=== PATIENT | female | born 1965 | race African-American/Black ===

== ENCOUNTER → 2020-08-27 | Day surgery (SDC) | payer OTHER ==
--- OUTSIDE RECORDS SUMMARY | 2020-08-27 09:50 | XMS ---
:1965 [facility] Care Team Providers Name Role Phone INES LIAM Unavailable Unavailable MINDY GOODWIN Unavailable Unavailable STEPHANIE MARTINEZ Unavailable Unavailable Re-disclosure Warning The records that you are about to access may contain information from federally- assisted alcohol or drug abuse programs. If such information is present, then the following federally mandated warning applies: This information has been disclosed to you from records protected by federal confidentiality rules (42 CFR part 2). The federal rules prohibit you from making any further disclosure of this information unless further disclosure is expressly permitted by the written consent of the person to whom it pertains or as otherwise permitted by 42 CFR part 2. A general authorization for the release of medical or other information is NOT sufficient for this purpose. The Federal rules restrict any use of the information to criminally investigate or prosecute any alcohol or drug abuse patient.The records that you are about to access may contain highly sensitive health information, the redisclosure of which is protected by Article 27-F of the [facility] Public Health law. If you continue you may haveaccess to information: Regarding HIV / AIDS; Provided by facilities licensed or operated by the [facility] Office of Mental Health; or Provided by the [facility] Office for People With Developmental Disabilities. If such information is present, then the following [facility] mandated warning applies: This information has been disclosed to you from confidential records which are protected by state law. State law prohibits you from making any further disclosure of this information without the specific written consent of the person to whom it pertains, or as otherwise permitted by law. Any unauthorized further disclosure in violation of state law may result in a fine or fdc sentence or both. A general authorization for the release of medical or other information is NOT sufficient authorization for further disclosure. Encounters Encounter Providers Location Date Indications Data Source(s ) Outpatient Attender: GNOSTICIST, 08[facility]18/2020 C[facility] GNOSTICIST, [employer] HUMAYUNReferrer: AHDIDIER NAVAEF C50.911 Outpatient Attender: GNOSTICIST, 07/28/2020 04:01:00 [facility].911 [facility] HUMAYUNReferrer: Osmel MARTINEZ orporation TAUSEEF C50.911 Outpatient Attender: GNOSTICIST, 07/21/2020 03:54:00 C50.911 [facility] PM EDT [facility] e[facility] Care HUMAYUNReferrer: Osmel MARTINEZ orporation TAUSEEF C50.911 Outpatient Attender: MICHELLE, 06/15/2020 01:34:00 C50.911 [facility] TAUSEEFAdmitter: MICHELLE, PM EDT H ealt Care TAUSEEFReferrer: Osmel MARTINEZ orporation TAUSEEF C50.911 Outpatient Attender: MICHELLE, 06/02/2020 10:13:00 C50.911 [facility] AM EDT H ealt Care HUMAYUNReferrer: Osmel MARTINEZ orporation TAUSEEF C50.911 Outpatient Attender: CHRISTA, 06/02/2020 06:00:00 C50.91 [facility] EDT [facility] e[facility] ZVIReferrer: Katie MARTINEZ ration TAUSEEF C50.911 Outpatient Attender: CHRISTA, 05/28/2020 06:00:00 C50.91 [facility] ZVIReferrer: Kyung MARTINEZo ration TAUSEEF C50.911 Outpatient Attender: MICHELLE 05/19/2020 10:40:00 C50.911 [facility] TAUSEEFAdmitter: AHMED, AM EDT H ealth Care TAUSEEFReferrer: AHMED, C orporation TAUSEEF C50.911 Outpatient Attender: AHMED, 04/13/2020 03:15:00 C50.911 [facility] TAUSEEFAdmitter: GNOSTICIST, PM EDT H ealth Care HUMAYUNReferrer: AHMED, C orporation TAUSEEF C50.911 Outpatient Attender: AHMED, 02/17/2020 03:15:00 C50.911 [facility] TAUSEEFAdmitter: GNOSTICIST, PM EDT H ealth Care HUMAYUNReferrer: AHMED, C orporation TAUSEEF C50.911 Outpatient Attender: MICHELLE, 01/22/2020 06:00:00 C50.911 [facility] TAUSEEFAdmitter: AM EDT Health C are [facility] GOODWINVIReferrer: C orporation AHMED, TAUSEEF C50.911 Outpatient Attender: MICHELLE, 01/21/2020 02:28:00 C50.911 [facility] TAUSEEFAdmitter: AHMED, PM EDT H ealt Care TAUSEEFReferrer: AHMED, C orporation TAUSEEF C50.911 Insurance Providers Payer name Policy type Policy ID Covered Covered libertarian's Policy P matheus / Coverage libertarian ID relationship to Cohen Inf ormation type cohen HERNANDO [id number] SP [id number] HEALTH CARE HMO/POS/EPO [place] [id number] 1 [id number] HEALTH CARE Problems, Conditions, and Diagnoses Code Display Name Description Problem Type Effective Data Sour ce(s) Dates C50.911 Malignant MALIGNANT Diagnosis 08/18/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 Ql KASH+probe This lab was ordered by [facility] and reported by [facility]. ID Date Data Source [id number] 03/16/2020 10:25:00 AM EDT [facility] Name Value Range Interpretation Description Data Sup porting Code Source(s) Document(s ) SARS [facility] CORONAVIRUS 2 RNA This lab was ordered by [facility] and reported by [facility]. Procedure
--- NOTE | 2020-08-30 11:50 | PATH ---
Cytology Non-Gynecological Report Patient Name: BLANCA MEDRANO Med. Rec. #: [id number] /Age/Gender: 1965 (Age: 55) / F Account: [id number] Location: RADIOLOGY [facility] Taken: 08/27/2020 Received: 08/27/2020 Reported: 08/30/2020 Physicians: Arabella Johnston Specimen(s) Received RIGHT BREAST FINE NEEDLE ASPIRATION Clinical History Patient had mastectomy with sponsorship coordinator placed. Fluid accumulation, bloody fluid aspirated from right breast. Final Diagnosis RIGHT BREAST FLUID, FINE NEEDLE ASPIRATION: SATISFACTORY FOR EVALUATION NO MALIGNANT CELLS IDENTIFIED. ACUTE INFLAMMATORY CELLS AND RARE MACROPHAGES PRESENT IN A BACKGROUND OF BLOODY MATERIAL. NO LINING EPITHELIAL CELLS PRESENT. SUGGEST CLINICAL CORRELATION. Electronically Signed uLcrecia Amado M.D. Gross Description Approximately 45cc of yellow fluid received fixed in 50% alcohol. One cytospin and one cellblock prepared
== END | disposition home or self-care (01) ==
LOC: JRADUS-SUR 09:36
PROVIDERS: ATTEND Plastic Surgery
PROC: 0H9T3ZX Drainage of Right Breast, Percutaneous Approach, Diagnostic (ICD-10-PCS; principal; 2020-08-27)
PROC: BH40ZZZ Ultrasonography of Right Breast (ICD-10-PCS; 2020-08-27)
DX: N63.10 Unspecified lump in the right breast, unspecified quadrant (principal); N64.89 Other specified disorders of breast; Z90.13 Acquired absence of bilateral breasts and nipples
CPT/HCPCS: 76942; 87070; 87075; 87205; 87899; 88173

== ENCOUNTER 2021-04-26 04:08 | Inpatient (IN) | payer OTHER ==
[2021-04-25 13:16] VITALS: BMI 29.1
[2021-04-26] MEDS ORDERED: HEPARIN NA (PORCINE) 5,000 UNITS/ML 1ML VIAL ONE ×2 (06:57→07:22)
[2021-04-26] MEDS ORDERED: ceFAZolin SODIUM 1 GM VIAL ONE ×3 (06:58→21:16)
[2021-04-26] MEDS ORDERED: BUPIVACAINE LIPOSOME/PF (EXPAREL) 266 MG/20 ML VIAL ONE (07:22)
[2021-04-26] MEDS ORDERED: LIDOCAINE HCL 4% PRESERVE-FREE 5 ML AMP ONE ×2 (07:23→07:24)
[2021-04-26] MEDS ORDERED: LIDOCAINE HCL 1% EPINEPHRINE 1:200,000 30 ML VIAL (PF) ONE (07:36)
[2021-04-26] MEDS ORDERED: ceFAZolin SODIUM 1 GM VIAL IVPB ONE (08:26)
[2021-04-26] MEDS ORDERED: HEPARIN NA (PORCINE) 5,000 UNITS/ML 1ML VIAL SQ ONE (08:28)
[2021-04-26] MEDS ORDERED: LIDOCAINE 1%/EPI 1:100000 (20 ML MULTI DOSE VIAL) IJ ONE (08:45)
[2021-04-26] MEDS ORDERED: ceFAZolin 2 GRAM PREMIX BAG IVPB ONE ×2 (12:30→15:38)
[2021-04-26] MEDS ORDERED: fentaNYL CITRATE 250 MCG/5 ML VIAL ONE (14:32)
[2021-04-26] MEDS ORDERED: ROCURONIUM BROMIDE 50 MG/5 ML SYRINGE ONE (14:32)
[2021-04-26] MEDS ORDERED: BUPIVACAINE LIPOSOME/PF (EXPAREL) 266 MG/20 ML VIAL NR ONE (15:04)
[2021-04-26] MEDS ORDERED: ONDANSETRON 4 MG/2 ML VIAL ONE (15:25)
[2021-04-26] MEDS ORDERED: ACETAMINOPHEN 1000 MG/100 ML VIAL (NON FORMULARY) IVPB ONE (16:39)
[2021-04-26] MEDS ORDERED: ONDANSETRON 4 MG/2 ML VIAL IVPUSH PRN (16:55)
[2021-04-26] MEDS ORDERED: PROCHLORPERAZINE MALEATE 25 MG SUPP.RECT PR PRN (16:55)
[2021-04-26] MEDS ORDERED: ZOLPIDEM TARTRATE 5 MG TABLET PO PRN (16:55)
[2021-04-26] MEDS ORDERED: METOCLOPRAMIDE HCL INJECTION 10 MG/2 ML VIAL IVPB PRN (16:55)
[2021-04-26] MEDS ORDERED: D5-1/2NS+10 MEQ KCL - 10 MEQ/1,000 ML INFUS.BAG IV SCH (17:00)
[2021-04-26] MEDS ORDERED: HEPARIN NA (PORCINE) 5,000 UNITS/ML 1ML VIAL SQ SCH (17:00)
[2021-04-26] MEDS ORDERED: DEXTROSE 5%-WATER - 50 ML IVPB ONE (21:16)
[2021-04-26] MEDS: CEFAZOLIN 1 GM in DEXTROSE 5%-WATER - 1 GM/50 ML IVPB IVPB SCH (21:23)
[2021-04-27] MEDS ORDERED: DEXTROSE 5%-WATER - 50 ML IVPB ONE ×3 (01:34→17:40)
[2021-04-27] MEDS ORDERED: ceFAZolin SODIUM 1 GM VIAL ONE ×3 (01:34→17:40)
[2021-04-27] MEDS: CEFAZOLIN 1 GM in DEXTROSE 5%-WATER - 1 GM/50 ML IVPB IVPB SCH ×3 (01:45→18:16)
[2021-04-27] MEDS: MORPHINE SULFATE 2 MG/ML VIAL IVPUSH PRN ×2 (05:58→15:02)
[2021-04-27] MEDS: CHOLECALCIFEROL (VIT D3) 1,000 UNIT (25 MCG) TABLET PO SCH (09:03)
[2021-04-27] MEDS: ATENOLOL 50 MG TABLET (FP) PO SCH (09:03)
[2021-04-27] MEDS: ASPIRIN 325 MG TABLET PO SCH (09:03)
[2021-04-27] MEDS: MULTIVITAMINS (DAILY MVI) TABLET (FP) PO SCH (09:03)
[2021-04-27] MEDS ORDERED: SODIUM CHLORIDE 500 ML IV STA ×2 (10:04→10:21)
[2021-04-27 10:08] LABS: BASO % 0.4 % (0-2.0); EOS % 2.9 % (0-4.5); HEMATOCRIT 34.4 % (32.4-45.2); HEMOGLOBIN 11.4 GM/dL (10.7-15.3); LYMPH % 19.3 % (8-40); MCHC 33.2 g/dl (32.0-36.0); MEAN CELL VOLUME 96.3 fl (80-96); MEAN PLT VOLUME 6.5 fl (7.5-11.1); MONO % 5.5 % (3.8-10.2); NEUT % 71.9 % (42.8-82.8); PLATELET COUNT 250 10^3/uL (134-434); RBC 3.57 M/mm3 (3.60-5.2); RDW 15.8 % (11.6-15.6); WHITE BLOOD COUNT 2.7 K/mm3 (4.0-10.0)
[2021-04-27] MEDS ORDERED: guaiFENesin/CODEINE 10 ML UNIT-DOSE CUPS PO ONE (10:13)
[2021-04-27] MEDS: HEPARIN NA (PORCINE) 5,000 UNITS/ML 1ML VIAL SQ SCH ×2 (10:21→20:45)
[2021-04-27 10:27] LABS: CALCIUM 8.5 mg/dL (8.5-10.1)
[2021-04-27 10:28] LABS: BLOOD UREA NITROGEN 5.4 mg/dL (7-18)
[2021-04-27 10:31] LABS: CREATININE 0.9 mg/dL (0.55-1.3)
[2021-04-27] MEDS ORDERED: PT OWN MED DRAWER 7, Y5N ONE (15:38)
[2021-04-27] MEDS: DEXTROSE 5%-LACTATED RINGERS 1,000 ML IV SCH (15:42)
[2021-04-28] MEDS: MORPHINE SULFATE 2 MG/ML VIAL IVPUSH PRN ×3 (00:15→19:38)
[2021-04-28] MEDS ORDERED: ceFAZolin SODIUM 1 GM VIAL ONE ×3 (01:08→18:36)
[2021-04-28] MEDS ORDERED: DEXTROSE 5%-WATER - 50 ML IVPB ONE ×3 (01:08→18:36)
[2021-04-28] MEDS: CEFAZOLIN 1 GM in DEXTROSE 5%-WATER - 1 GM/50 ML IVPB IVPB SCH ×3 (01:16→19:06)
[2021-04-28] MEDS: NORMAL SALINE FLUSH 0.9% 2.5 ML SYRINGE IVPUSH SCH ×4 (10:05→23:09)
[2021-04-28] MEDS: HEPARIN NA (PORCINE) 5,000 UNITS/ML 1ML VIAL SQ SCH ×2 (10:05→20:37)
[2021-04-28] MEDS: ASPIRIN 325 MG TABLET PO SCH (10:13)
[2021-04-28] MEDS: CHOLECALCIFEROL (VIT D3) 1,000 UNIT (25 MCG) TABLET PO SCH (10:14)
[2021-04-28] MEDS: MULTIVITAMINS (DAILY MVI) TABLET (FP) PO SCH (10:14)
[2021-04-28] MEDS ORDERED: ACETAMINOPHEN 325 MG TABLET (FP) PO PRN (11:58)
[2021-04-28] MEDS: ATENOLOL 50 MG TABLET (FP) PO SCH (12:22)
[2021-04-28] MEDS: DEXTROSE 5%-LACTATED RINGERS 1,000 ML IV SCH (22:24)
[2021-04-28] MEDS ORDERED: METOCLOPRAMIDE HCL INJECTION 10 MG/2 ML VIAL IVPB PRN (22:39)
[2021-04-28] MEDS ORDERED: ONDANSETRON 4 MG/2 ML VIAL IVPUSH PRN (22:39)
[2021-04-28] MEDS ORDERED: ZOLPIDEM TARTRATE 5 MG TABLET PO PRN (22:39)
[2021-04-28] MEDS ORDERED: MORPHINE SULFATE 2 MG/ML VIAL IVPUSH PRN (22:39)
[2021-04-29] MEDS ORDERED: ceFAZolin SODIUM 1 GM VIAL ONE ×3 (01:35→18:05)
[2021-04-29] MEDS ORDERED: DEXTROSE 5%-WATER - 50 ML IVPB ONE ×3 (01:35→18:06)
[2021-04-29] MEDS: CEFAZOLIN 1 GM in DEXTROSE 5%-WATER - 1 GM/50 ML IVPB IVPB SCH ×3 (01:45→18:25)
[2021-04-29] MEDS: oxyCODONE HCL 5 MG TABLET PO PRN (03:12)
[2021-04-29] MEDS ORDERED: ACETAMINOPHEN 325 MG TABLET (FP) PO ONE (05:05)
[2021-04-29] MEDS: NORMAL SALINE FLUSH 0.9% 2.5 ML SYRINGE IVPUSH SCH ×2 (06:37→15:01)
[2021-04-29] MEDS: ACETAMINOPHEN 1000 MG/100 ML VIAL (NON FORMULARY) IVPB SCH ×3 (09:24→20:43)
[2021-04-29] MEDS ORDERED: LACTULOSE 20 GM/30 ML UDC (FOR ORAL USE ONLY) PO ONE (09:32)
[2021-04-29 10:37] LABS: BASO % 0.3 % (0-2.0); EOS % 2.4 % (0-4.5); HEMATOCRIT 25.8 % (32.4-45.2); HEMOGLOBIN 8.6 GM/dL (10.7-15.3); LYMPH % 32.5 % (8-40); MCH 31.8 pg (25.7-33.7); MCHC 33.4 g/dl (32.0-36.0); MEAN CELL VOLUME 95.3 fl (80-96); MEAN PLT VOLUME 6.9 fl (7.5-11.1); MONO % 9.5 % (3.8-10.2); NEUT % 55.3 % (42.8-82.8); PLATELET COUNT 218 10^3/uL (134-434); RBC 2.71 M/mm3 (3.60-5.2); RDW 15.4 % (11.6-15.6); WHITE BLOOD COUNT 2.6 K/mm3 (4.0-10.0)
[2021-04-29 11:07] LABS: CALCIUM 8.1 mg/dL (8.5-10.1)
[2021-04-29 11:08] LABS: BLOOD UREA NITROGEN 4.8 mg/dL (7-18)
[2021-04-29 11:10] LABS: CREATININE 0.7 mg/dL (0.55-1.3)
[2021-04-29] MEDS: HEPARIN NA (PORCINE) 5,000 UNITS/ML 1ML VIAL SQ SCH ×2 (11:11→20:43)
[2021-04-29 11:12] LABS: TOT PROT 5.3 g/dl (6.4-8.2)
[2021-04-29] MEDS: CHOLECALCIFEROL (VIT D3) 1,000 UNIT (25 MCG) TABLET PO SCH (11:12)
[2021-04-29] MEDS: MULTIVITAMINS (DAILY MVI) TABLET (FP) PO SCH (11:12)
[2021-04-29] MEDS: ATENOLOL 50 MG TABLET (FP) PO SCH (11:12)
[2021-04-29] MEDS: ASPIRIN 325 MG TABLET PO SCH (11:12)
[2021-04-29 11:15] LABS: BILIRUBIN,TOTAL 0.7 mg/dL (0.2-1)
[2021-04-29] MEDS: POLYETHYLENE GLYCOL 3350 119 GM BTL PO SCH (11:15)
[2021-04-29 22:19] VITALS: BP 134/94; PULSE 95; TEMP 98.6
[2021-04-30] MEDS ORDERED: ceFAZolin SODIUM 1 GM VIAL ONE ×2 (01:52→10:00)
[2021-04-30] MEDS ORDERED: DEXTROSE 5%-WATER - 50 ML IVPB ONE ×2 (01:53→10:01)
[2021-04-30] MEDS: CEFAZOLIN 1 GM in DEXTROSE 5%-WATER - 1 GM/50 ML IVPB IVPB SCH ×2 (01:55→10:05)
[2021-04-30] MEDS: NORMAL SALINE FLUSH 0.9% 2.5 ML SYRINGE IVPUSH SCH ×2 (01:55→06:05)
[2021-04-30] MEDS: ACETAMINOPHEN 1000 MG/100 ML VIAL (NON FORMULARY) IVPB SCH ×3 (03:19→10:11)
[2021-04-30] MEDS: oxyCODONE HCL 5 MG TABLET PO PRN (07:50)
[2021-04-30 08:12] LABS: BASO % 0.4 % (0-2.0); EOS % 2.1 % (0-4.5); HEMATOCRIT 25.3 % (32.4-45.2); HEMOGLOBIN 8.5 GM/dL (10.7-15.3); MCHC 33.8 g/dl (32.0-36.0); MEAN CELL VOLUME 94.7 fl (80-96); MEAN PLT VOLUME 6.6 fl (7.5-11.1); MONO % 8.8 % (3.8-10.2); NEUT % 63.7 % (42.8-82.8); PLATELET COUNT 241 10^3/uL (134-434); RBC 2.67 M/mm3 (3.60-5.2); RDW 15.1 % (11.6-15.6); WHITE BLOOD COUNT 2.5 K/mm3 (4.0-10.0)
[2021-04-30 08:35] LABS: BLOOD UREA NITROGEN 5.9 mg/dL (7-18); CALCIUM 8.3 mg/dL (8.5-10.1)
[2021-04-30 08:39] LABS: CREATININE 0.6 mg/dL (0.55-1.3)
[2021-04-30] MEDS: HEPARIN NA (PORCINE) 5,000 UNITS/ML 1ML VIAL SQ SCH (10:06)
[2021-04-30] MEDS: ASPIRIN 325 MG TABLET PO SCH (10:06)
[2021-04-30] MEDS: CHOLECALCIFEROL (VIT D3) 1,000 UNIT (25 MCG) TABLET PO SCH (10:06)
[2021-04-30] MEDS: MULTIVITAMINS (DAILY MVI) TABLET (FP) PO SCH (10:06)
[2021-04-30] MEDS: ATENOLOL 50 MG TABLET (FP) PO SCH (10:06)
[2021-04-30] MEDS: POLYETHYLENE GLYCOL 3350 119 GM BTL PO SCH (10:07)
[2021-04-30] MEDS ORDERED: HYDROCHLOROTHIAZIDE 25 MG TABLET (FP) PO SCH (10:45)
[2021-04-30] MEDS ORDERED: RIBOCICLIB SUCCINATE PO SCH (11:00)
[2021-04-30] MEDS ORDERED: LETROZOLE 2.5 MG TABLET (FP) PO SCH (11:00)
== END 2021-04-30 15:29 | disposition home or self-care (01) | DRG 583 ==
LOC: J2C 04:08 → EDSTATUS 10:57 → J2C 11:56 → JICU 18:31 → J7W 04-28 21:51
PROVIDERS: ADMIT Plastic Surgery; ATTEND Internal Medicine
PROC: 0HPT0NZ Removal of Tissue Expander from Right Breast, Open Approach (ICD-10-PCS; 2021-04-26)
PROC: 0HRV077 Replacement of Bilateral Breast using Deep Inferior Epigastric Artery Perforator Flap, Open Approach (ICD-10-PCS; principal; 2021-04-26 08:00)
PROC: 0HPU0NZ Removal of Tissue Expander from Left Breast, Open Approach (ICD-10-PCS; 2021-04-26 08:00)
DX: C50.911 Malignant neoplasm of unspecified site of right female breast (principal); I10 Essential (primary) hypertension; I95.2 Hypotension due to drugs; T40.695A Adverse effect of other narcotics, initial encounter; Z90.13 Acquired absence of bilateral breasts and nipples
CPT/HCPCS: 36415; 80048; 80053; 82728; 83540; 83550; 85025; 86850; 86900; 86901; 86922; 88300-TC; 88304-TC; 94760; 97116-GP; 97162-GP; J0131; J1644

== ENCOUNTER 2021-05-12 13:24 | Emergency (ER) | payer OTHER ==
[2021-05-12 13:36] VITALS: BP 141/78; PULSE 93; TEMP 98.1; BMI 28.8
[2021-05-12 16:29] LABS: EOS % 5.6 % (0-4.5); HEMATOCRIT 29.7 % (32.4-45.2); HEMOGLOBIN 9.8 GM/dl (10.7-15.3); LYMPH % 27.8 % (8-40); MCH 31.2 pg (25.7-33.7); MEAN CELL VOLUME 94.5 fl (80-96); MONO % 2.2 % (3.8-10.2); NEUT % 62.4 % (42.8-82.8); PLATELET COUNT 428 10^3/uL (134-434); RBC 3.14 M/mm3 (3.60-5.2); RDW 14.3 % (11.6-15.6); WHITE BLOOD COUNT 3.5 K/mm3 (4.0-10.8)
[2021-05-12 16:30] LABS: MEAN PLT VOLUME 5.8 fl (7.5-11.1)
[2021-05-12 16:50] LABS: ALBUMIN 2.5 g/dl (3.4-5.0); ALK PHOS 76 U/L (45-117); ANION GAP 9 MMOL/L (8-16); BILIRUBIN,TOTAL 0.3 mg/dl (0.2-1); CALCIUM 7.9 mg/dl (8.5-10); CHLORIDE 103 mmol/L (98-107); CO2 25 mmol/L (21-32); CREATININE 0.9 mg/dl (0.55-1.3); GLUCOSE,RANDOM 94 mg/dl (74-106); SGOT/AST 24 U/L (15-37); SGPT/ALT 20 U/L (13-61); SODIUM 137 mmol/L (136-145); TOT PROT 6.7 g/dl (6.4-8.2)
== END 2021-05-12 20:42 | disposition home or self-care (01) ==
LOC: FER 13:24
DX: M79.605 Pain in left leg (principal)
CPT/HCPCS: 36415; 71046-TC-FY; 71275-TC; 80053; 84484; 85025; 86850; 86900; 86901; 93005; 93926-TC; 93970-TC; 99285-25; Q9967

== ENCOUNTER → 2021-10-12 | Day surgery (SDC) | payer OTHER | END | disposition home or self-care (01) | LOC: JRADUS-SUR 13:17 | PROVIDERS: ATTEND Surgery Surgical Oncology | PROC: 0H9U3ZX Drainage of Left Breast, Percutaneous Approach, Diagnostic (ICD-10-PCS; principal; 2021-10-12) | DX: D24.2 Benign neoplasm of left breast (principal) | CPT/HCPCS: 19083; 87899; A4648 ==

== ENCOUNTER 2022-04-10 14:15 | Inpatient (IN) | payer BC, OTHER ==
[2022-04-10 14:59] LABS: HEMATOCRIT 38.6 % (32.4-45.2); HEMOGLOBIN 13.3 G/dL (10.7-15.3); MCH 32.8 pg (25.7-33.7); MCHC 34.5 g/dl (32.0-36.0); RBC 4.06 10^6/uL (3.60-5.2); WHITE BLOOD COUNT 2.7 10^3/uL (4.0-10.8)
[2022-04-10 15:06] LABS: ALBUMIN 3.7 g/dl (3.4-5.0); BILIRUBIN,TOTAL 1.5 mg/dl (0.2-1); CALCIUM 8.9 mg/dl (8.5-10); CREATININE 1.2 mg/dl (0.55-1.3); TOT PROT 7.5 g/dl (6.4-8.2)
[2022-04-10] MEDS ORDERED: POTASSIUM CHLORIDE TABS 20 MEQ TABLET.ER (FP) PO ONE ×2 (15:25→15:32)
[2022-04-10] MEDS ORDERED: ASPIRIN 81 MG CHEWABLE TABLETS PO ONE (15:25)
[2022-04-10] MEDS ORDERED: KCL 10 MEQ IVPB 10 MEQ/100 ML INFUS.BAG IVPB ONE (15:32)
[2022-04-10] MEDS ORDERED: ASPIRIN 81 MG CHEWABLE TABLETS ONE (15:32)
[2022-04-10] MEDS: KCL 10 MEQ IVPB 10 MEQ/100 ML INFUS.BAG IVPB SCH ×3 (15:45→20:00)
[2022-04-10 15:52] LABS: PLATELET ESTIMATE ADEQUATE
[2022-04-10] MEDS ORDERED: ACETAMINOPHEN 325 MG TABLET (FP) PO ONE (15:54)
[2022-04-10] MEDS ORDERED: ACETAMINOPHEN 325 MG TABLET (FP) ONE (15:59)
[2022-04-10] MEDS ORDERED: KCL 10 MEQ IVPB 20 MEQ/200 ML INFUS.BAG IVPB ONE (18:25)
[2022-04-10 19:44] LABS: EPITHELIAL CELLS FEW /hpf
[2022-04-10 22:16] VITALS: BMI 26.8
[2022-04-11 01:19] LABS: CHLORIDE 86 mmol/L (98-107); SODIUM 134 mmol/L (136-145)
[2022-04-11 01:21] LABS: CALCIUM 8.1 mg/dL (8.5-10.1)
[2022-04-11 01:22] LABS: ALBUMIN 2.8 g/dl (3.4-5.0); BLOOD UREA NITROGEN 5.7 mg/dL (7-18); CO2 42 mmol/L (21-32); GLUCOSE,RANDOM 114 mg/dL (74-106); MAGNESIUM 2.2 mg/dL (1.8-2.4)
[2022-04-11 01:24] LABS: SGPT/ALT 74 U/L (13-61)
[2022-04-11 01:25] LABS: CREATININE 1.1 mg/dL (0.55-1.3); SGOT/AST 168 U/L (15-37)
[2022-04-11 01:26] LABS: BILIRUBIN,TOTAL 0.8 mg/dL (0.2-1); TOT PROT 6.2 g/dl (6.4-8.2)
[2022-04-11 01:28] LABS: ALK PHOS 73 U/L (45-117)
[2022-04-11 01:30] LABS: ANION GAP 5 MMOL/L (8-16)
[2022-04-11] MEDS: KCL 10 MEQ IVPB 10 MEQ/100 ML INFUS.BAG IVPB SCH ×9 (02:47→23:44)
[2022-04-11] MEDS: LEVOTHYROXINE NA 150 MCG TABLET PO SCH (06:21)
[2022-04-11 08:15] LABS: HEMATOCRIT 33.2 % (32.4-45.2); HEMOGLOBIN 11.5 G/dL (10.7-15.3); MCHC 34.6 g/dl (32.0-36.0); MEAN CELL VOLUME 95.5 fl (80-96); MEAN PLT VOLUME 6.9 fl (7.5-11.1); PLATELET COUNT 192.7 10^3/uL (134-434); RBC 3.48 10^6/uL (3.60-5.2); RDW 14.9 % (11.6-15.6); WHITE BLOOD COUNT 1.8 10^3/uL (4.0-10.8)
[2022-04-11 08:21] LABS: ALBUMIN 2.9 g/dl (3.4-5.0); BILIRUBIN,TOTAL 1.1 mg/dl (0.2-1); CALCIUM 8.1 mg/dl (8.5-10); TOT PROT 5.8 g/dl (6.4-8.2)
[2022-04-11] MEDS ORDERED: LETROZOLE PO SCH (10:00)
[2022-04-11] MEDS ORDERED: RIBOCICLIB PO SCH (10:00)
[2022-04-11] MEDS ORDERED: POTASSIUM CHLORIDE TABS 20 MEQ TABLET.ER (FP) PO SCH ×2 (10:45→17:30)
[2022-04-11] MEDS ORDERED: SODIUM CHLORIDE 1,000 ML IV SCH (13:30)
[2022-04-11] MEDS: ENOXAPARIN NA (PORCINE) 40 MG/0.4 ML DISP.SYRIN SQ SCH (14:52)
[2022-04-11] MEDS: ATENOLOL 50 MG TABLET (FP) PO SCH (14:53)
[2022-04-11] MEDS: ACETAMINOPHEN 325 MG TABLET (FP) PO SCH ×2 (17:29→21:29)
[2022-04-11 21:16] LABS: ALBUMIN 2.9 g/dl (3.4-5.0); BILIRUBIN,TOTAL 0.7 mg/dl (0.2-1); CALCIUM 8.1 mg/dl (8.5-10); CREATININE 0.9 mg/dl (0.55-1.3); TOT PROT 5.9 g/dl (6.4-8.2)
[2022-04-11] MEDS ORDERED: MAG HYDROX/AL HYDROX/SIMETH 30 ML UNIT-DOSE CUP PO PRN (21:20)
[2022-04-11] MEDS ORDERED: POTASSIUM CHLORIDE TABS 20 MEQ TABLET.ER (FP) PO ONE (21:31)
[2022-04-12] MEDS: ACETAMINOPHEN 325 MG TABLET (FP) PO SCH ×3 (06:48→18:41)
[2022-04-12] MEDS: LEVOTHYROXINE NA 150 MCG TABLET PO SCH (06:48)
[2022-04-12 08:05] LABS: HEMATOCRIT 32.5 % (32.4-45.2); HEMOGLOBIN 11.2 G/dL (10.7-15.3); MCH 32.6 pg (25.7-33.7); MCHC 34.5 g/dl (32.0-36.0); MEAN CELL VOLUME 94.4 fl (80-96); MEAN PLT VOLUME 6.9 fl (7.5-11.1); PLATELET COUNT 187.3 10^3/uL (134-434); RBC 3.44 10^6/uL (3.60-5.2); RDW 14.8 % (11.6-15.6)
[2022-04-12 08:11] LABS: ALBUMIN 2.8 g/dl (3.4-5.0); BILIRUBIN,TOTAL 0.6 mg/dl (0.2-1); CALCIUM 8.3 mg/dl (8.5-10); MAGNESIUM 1.9 mg/dL (1.8-2.4); TOT PROT 5.8 g/dl (6.4-8.2)
[2022-04-12] MEDS: KCL 10 MEQ IVPB 10 MEQ/100 ML INFUS.BAG IVPB SCH ×3 (08:39→11:07)
[2022-04-12] MEDS: POTASSIUM CHLORIDE TABS 20 MEQ TABLET.ER (FP) PO SCH ×3 (08:40→20:42)
[2022-04-12] MEDS: ATENOLOL 50 MG TABLET (FP) PO SCH (09:04)
[2022-04-12] MEDS ORDERED: SODIUM CHLORIDE 1,000 ML IV SCH (10:15)
[2022-04-12] MEDS: ENOXAPARIN NA (PORCINE) 40 MG/0.4 ML DISP.SYRIN SQ SCH (11:08)
[2022-04-12] MEDS: RIBOCICLIB PO SCH (11:25)
[2022-04-12] MEDS: LETROZOLE 2.5 MG TABLET (FP) PO SCH (11:40)
[2022-04-13] MEDS: ACETAMINOPHEN 325 MG TABLET (FP) PO SCH ×3 (03:26→09:33)
[2022-04-13] MEDS: LEVOTHYROXINE NA 150 MCG TABLET PO SCH (06:33)
[2022-04-13 06:56] VITALS: TEMP 98.6
[2022-04-13 08:26] LABS: CALCIUM 9.3 mg/dl (8.5-10); MAGNESIUM 1.8 mg/dL (1.8-2.4)
[2022-04-13 09:27] VITALS: BP 127/85; PULSE 88
[2022-04-13] MEDS: ATENOLOL 50 MG TABLET (FP) PO SCH (09:32)
[2022-04-13] MEDS: ENOXAPARIN NA (PORCINE) 40 MG/0.4 ML DISP.SYRIN SQ SCH (09:32)
[2022-04-13] MEDS: LETROZOLE 2.5 MG TABLET (FP) PO SCH (09:32)
[2022-04-13] MEDS: RIBOCICLIB PO SCH (09:39)
== END 2022-04-13 10:15 | disposition home or self-care (01) | DRG 641 ==
LOC: FER 14:15 → FM/S 18:20
PROVIDERS: ADMIT Family Medicine; ATTEND Nurse Practitioner Acute Care
DX: E87.6 Hypokalemia (principal); R55 Syncope and collapse; E03.9 Hypothyroidism, unspecified; I10 Essential (primary) hypertension; E78.5 Hyperlipidemia, unspecified; E86.0 Dehydration; R77.8 Other specified abnormalities of plasma proteins; E87.1 Hypo-osmolality and hyponatremia; C50.919 Malignant neoplasm of unspecified site of unspecified female breast
CPT/HCPCS: 0241U-QW; 36415; 71045-TC-FY; 80048; 80053; 81003; 81015; 83735; 84439; 84443; 84484; 85025; 85027; 87040; 87086; 87186; 93005; 93306-TC; 93880-TC; 97116-GP; 97161-GP; 99285-25